=== PATIENT | male | born 1990 | race Caucasian/White ===

== ENCOUNTER 2022-06-23 07:28 | Emergency (ER) | payer SELFPAY ==
--- NOTE | ~2022-06-23 | CT_ITS ---
EXAMINATION: CT abdomen pelvis w con DATE: 06/23/2022 10:26 INDICATION: Lower abdominal pain. TECHNIQUE: Computed tomography (CT) of the abdomen and pelvis was performed with 100 mL Omnipaque-350 intravenous contrast. Automated exposure control and iterative reconstruction technique were employe d. The dose-length product was 1696.64 mGy-cm. COMPARISON: None FINDINGS: Lung bases are clear. Heart size is normal. No pericardial or pleural effusion. Liver, gallbladder, s pleen, pancreas, bilateral adrenal glands and kidneys are normal. Bowels including the appendix are n ormal. Bladder is normal. No free intraperitoneal gas or fluid. No pathologically enlarged abdominal or pelvic lymphadenopathy. Bones are unremarkable. IMPRESSION: 1. No acute intra-abdominal/pelvic process. Reviewed, dictated and finalized at location A. [employer]
[2022-06-23 07:31] VITALS: BP 153/82; PULSE 101; RESP 18; TEMP 36.4; O2SAT 100
[2022-06-23 08:30] LABS: Basophils Absolute Auto 0.1 K/mm3 (0.0-0.1); Basophils Percent Auto 1.2 % (0.2-1.2); Eosinophils Percent Auto 12.8 % (0-4.4); Hematocrit 44.3 % (42.0-52.0); Hemoglobin 14.5 g/dL (14.0-18.0); Immature Granulocyte Absolute 0.02 K/mm3 (0.00-0.031); Immature Granulocyte Percent A 0.2 % (0-0.5); Lymphocytes Absolute Auto 1.56 K/mm3 (0.9-3.2); Lymphocytes Percent Auto 19.2 % (18.3-44.2); Mean Corpuscular HGB Conc 32.7 g/dl (32-36); Mean Corpuscular Hemoglobin 28.5 pg (26-34); Mean Corpuscular Volume 87.2 fl (80-100); Mean Platelet Volume 10.2 fl (7.4-10.4); Monocytes Absolute Auto 0.6 K/mm3 (0.1-0.6); Monocytes Percent Auto 6.9 % (2.6-8.5); Neutrophils Absolute Auto 4.9 K/mm3 (1.3-6.7); Neutrophils Percent Auto 59.7 % (45.5-73.1); Platelet Count Result 201 k/mm3 (150-375); Red Blood Count 5.08 M/mm3 (4.6-6.20); Red Cell Distribution Width 13.3 % (11.5-14.5); White Blood Count 8.1 K/mm3 (4.5-10.0)
[2022-06-23 08:33] LABS: Appearance Urine Clear (Clear); Bilirubin Urine Negative (Negative); Blood Urine Negative (Negative); Color Urine Yellow (Yellow); Glucose Urine UA Negative (Negative); Ketones Urine Negative (Negative); Leukocyte Esterase Ur Negative LEU/UL (Negative); Nitrate Urine Negative (Negative); Protein Urine Negative (Negative); Urobilinogen Urine 0.2 mg/dL (<2.0)
[2022-06-23 08:41] LABS: Alanine Aminotransferase 41 U/L (6-50); Albumin Level 4.2 g/dL (3.5-5.1); Alkaline Phosphatase 56 U/L (38-126); Anion Gap 5 mmol/L (8-16); Aspartate Amino Transferase 26 U/L (17-59); Bilirubin,Total 0.4 mg/dL (0.2-1.3); Blood Urea Nitrogen 14 mg/dL (9-20); Calcium 8.5 mg/dL (8.4-10.2); Carbon Dioxide 24 mmol/L (22-30); Chloride 110 mmol/L (98-107); Estimated CRCL calculation 209 ml/min; Estimated Glomerular Filt Rate > 60; Glucose 102 mg/dL (65-110); Lipase 371 U/L (23-300); Potassium 4.5 mmol/L (3.4-5.0); Sodium 139 mmol/L (137-145)
[2022-06-23 08:51] LABS: Add Urine Microscopic? NO
--- NOTE | 2022-06-23 09:09 | ED.ABDPAIN ---
HPI - Abdominal Pain General Chief Complaint: Abdominal Pain Stated Complaint: abdominal pain with n/v/d x 1 month Time Seen by Provider: 06/23/22 07:33 Source: patient and RN notes reviewed Mode of arrival: ambulatory Limitations: no limitations History of Present Illness HPI narrative: This is a 31 year old male who presents for evaluation of abdominal pain, nausea, vomiting and diarrhea. Patient reports he has had constant daily lower abdominal pain for 1 month. His pain seems worse in the morning and when he feels like he needs to have a bowel movement. He states every morning he has diarrhea with episode of vomiting, and they rest of the day he has able to eat with diarrhea or vomiting. His pain worsened yesterday. He denies fever , chills. He states yesterday he found a lump on his rectum and he is having rectal pain Related Data Allergies Allergy/AdvReac Type Severity Reaction Status Date / Time No Known Allergies Allergy Unverified 06/23/22 07:28 Review of Systems Review of Systems: All systems reviewed & are unremarkable except as noted in HPI and below Constitutional: Constitutional: Denies chills, Denies fatigue and Denies fever(s) ENT: Denies nasal congestion and Denies sore throat Gastrointestinal: Gastrointestinal: Reports abdominal pain, Reports diarrhea, Reports nausea and Reports vomiting Genitourinary: Genitourinary: Denies hematuria PMFSH Past Medical History Medical History (Updated 06/23/22 @ 11:30 by Tiffanie Barnard MD) Patient denies medical problems Surgical History Surgical History (Updated 06/23/22 @ 10:13 by Tiffanie Barnard MD) No pertinent past surgical history Social History Social History (Updated 06/23/22 @ 10:13 by Tiffanie Barnard MD) Smoking status: Never smoker Exam Const: General: no acute distress and alert Nutritional Appearance: well nourished and obese Orientation/consciousness: patient oriented x3 Limitations: no limitations HENMT: Head: normal to inspection Eyes: EOM: EOMs intact bilaterally Chest: Chest palpation & inspection: normal inspection of the chest Resp: Effort & Inspection: normal respiratory effort Auscultation: clear to auscultation bilaterally Cardio: Rate: regular rate Rhythm: regular rhythm Heart sounds: no murmurs GI: GI Palp: Yes Soft to palpation, Yes Tenderness to palpation present (GI) (LLQ), No Guarding due to palpation present (GI), No Rigid due to palpation and No Hernia present Auscultation: Hypoactive bowel sounds present Rectal Exam: normal sphincter tone Other: no thrombosed hemorrhoid, no mass, , patient had pain with digital exam, no blood Skin: General skin exam: normal color Rashes: no rashes Neuro: General: patient oriented x3, moves all extremities and CN's II-XI intact bilaterally Cranial nerves: Yes Nystagmus not present Speech: normal speech Gait exam (Neuro): Normal gait present Extrem: General: normal to inspection Psych: Mental Status: mental status grossly normal Affect: normal affect Attitude: cooperative Course Reevaluation(s) Reevaluation #1: I have discussed with patient that labs are unremarkable for any significant abnormalities. CT was unremarkable. He does not have leukocytosis. I discussed he will be placed on medication for reflux and hemorrhoid cream. Date: 06/23/22 Time: 11:25 Vital Signs Vital signs: Vital Signs Temperature 97.6 F 06/23/22 07:31 Pulse Rate 101 H 06/23/22 07:31 Respiratory Rate 18 06/23/22 07:31 Blood Pressure 153/82 H 06/23/22 07:31 Pulse Oximetry 100 06/23/22 07:31 Oxygen Delivery Room Air 06/23/22 07:31 Temperature 97.6 F 06/23/22 07:31 Pulse Rate 73 06/23/22 11:39 Respiratory Rate 17 06/23/22 11:39 Blood Pressure 115/78 06/23/22 11:39 Pulse Oximetry 98 06/23/22 11:39 Oxygen Delivery Room Air 06/23/22 07:31 MDM - Abdominal Pain Differential Diagnosis Differential diagnosis: Likely abdominal pain,
[2022-06-23] MEDS: LACTATED RINGERS 1,000 ML 999 ML IV CONT (09:15)
[2022-06-23] MEDS: ONDANSETRON INJ 4 MG/2 ML VIAL IV PUSH (09:15)
[2022-06-23 11:28] VITALS: BP 120/73; PULSE 61; RESP 17; O2SAT 97
[2022-06-23 11:39] VITALS: BP 115/78; PULSE 73; RESP 17; O2SAT 98
== END 2022-06-23 11:39 | disposition home or self-care (01) ==
PROVIDERS: Emergency Provider General Practice
DX: R11.2 Nausea with vomiting, unspecified (principal); K62.89 Other specified diseases of anus and rectum
CPT/HCPCS: 36415; 74177; 80053; 81003; 83690; 85025; 96361; 96365; 96375; 99284; J0131; J2405; J7120; Q9967

== ENCOUNTER 2023-11-01 08:44 | Emergency (ER) | payer OTHER, SELFPAY ==
--- NOTE | ~2023-11-01 | XR_ITS ---
EXAMINATION: XR abdomen/kub 1V DATE: 11/01/2023 10:01 INDICATION: Low abdominal pain. TECHNIQUE: A supine view of the abdomen on 2 radiographs was obtained. COMPARISON: None. FINDINGS: There are no dilated loops of bowel. There is a small volume of stool in the colon. IMPRESSION: 1. Normal bowel gas pattern. Reviewed, dictated and finalized at location E.
[2023-11-01 08:47] VITALS: BP 164/81; PULSE 97; RESP 20; TEMP 36.9; O2SAT 100
--- NOTE | 2023-11-01 09:19 | ED.ABDPAIN ---
HPI - Abdominal Pain General Chief Complaint: Abdominal Pain Stated Complaint: abd pain Time Seen by Provider: 11/01/23 09:05 History of Present Illness HPI narrative: 33-year-old male no medical problems presents to the emergency room for evaluation of lower abdominal pain that began at 3:00 a.m. this morning. Describes the pain as a crampy sensation and was unrelieved with a small bowel movement he had a 4:00 a.m.. Patient states he was diagnosed with having AA external hemorrhoid couple of months ago at Urgent Care, but was not given any instructions as how to care for it. Patient does admit to infrequent small bowel movements. Denies any dysuria. Denies fevers. Related Data Allergies Allergy/AdvReac Type Severity Reaction Status Date / Time No Known Allergies Allergy Verified 11/01/23 08:49 Review of Systems Review of Systems: Review of systems unremarkable except as noted per HPI and below PMFSH Past Medical History Medical History Patient denies medical problems Surgical History Surgical History No pertinent past surgical history Social History Social History Smoking status: Never smoker Exam Narrative: GENERAL: Well-appearing, well-nourished, no physical limitations, and in no acute distress. Morbidly obese HEAD: Normocephalic, atraumatic. EYES: Conjunctivae normal, PERRLA and EOMI. CHEST: Clear to auscultation. No respiratory distress. No wheezes rales or rhonchi. HEART: Regular rate and rhythm. No murmur heard. Normal peripheral pulses. ABDOMEN: Soft, lower abdominal tenderness. Negative heel strike. Negative psoas and obturator signs. No rebound tenderness. Negative Clarke's BACK: No CVA tenderness; EXTREMITIES: Normal range of motion. No edema. No clubbing or cyanosis SKIN: Warm, dry, no rash. No noted wounds NEURO: No focal deficits. Alert and oriented x3. MAEW. CN's II-XI intact bilaterally, normal gait PSYCH: Cooperative. Normal mood and affect. Course Vital Signs Vital signs: Vital Signs Temperature 36.9 C 11/01/23 08:47 Pulse Rate 97 11/01/23 08:47 Respiratory Rate 20 11/01/23 08:47 Blood Pressure 164/81 H 11/01/23 08:47 Pulse Oximetry 100 11/01/23 08:47 Oxygen Delivery Room Air 11/01/23 08:47 Temperature 36.9 C 11/01/23 08:47 Pulse Rate 97 11/01/23 08:47 Respiratory Rate 20 11/01/23 08:47 Blood Pressure 164/81 H 11/01/23 08:47 Pulse Oximetry 100 11/01/23 08:47 Oxygen Delivery Room Air 11/01/23 08:47 MDM - Abdominal Pain MDM Narrative Medical decision making narrative: 33-year-old male no medical problems presented with lower abdominal pain. Patient endorsed hemorrhoids which were not being managed. States that he has been having small infrequent bowel movements. KUB and lab work were unremarkable. Patient likely experiencing constipation secondary to his hemorrhoids. Encourage patient to use magnesium citrate today, the tucks medicated pads, and consider daily fiber supplementation. Lab Data 11/01/23 09:26 11/01/23 09:26 Labs: Lab Results 11/01/23 Range/Units 09:26 WBC 7.3 (4.5-10.0) K/mm3 RBC 5.34 (4.6-6.20) M/mm3 Hgb 14.9 (14.0-18.0) g/dL Hct 45.3 (42.0-52.0) % MCV 84.8 (80-100) fl MCH 27.9 (26-34) pg MCHC 32.9 (32-36) g/dl RDW 13.4 (11.5-14.5) % Plt Count 199 (150-375) k/mm3 MPV 10.2 (7.4-10.4) fl Immature Gran % (Auto) 0.3 (0-0.5) % Neut % (Auto) 63.0 (45.5-73.1) % Lymph % (Auto) 21.0 (18.3-44.2) % Jewell % (Auto) 5.6 (2.6-8.5) % Eos % (Auto) 8.9 H (0-4.4) % Baso % (Auto) 1.2 (0.2-1.2) % Lymph # (Auto) 1.53 (0.9-3.2) K/mm3 Jewell # (Auto) 0.4 (0.1-0.6) K/mm3 Eos # (Auto) 0.7 H (0-0.3) K/mm3 Baso # (Auto) 0.1 (0.0-0.1) K/mm3 Abs Immat Gran (auto) 0
[2023-11-01 09:32] LABS: Basophils Absolute Auto 0.1 K/mm3 (0.0-0.1); Basophils Percent Auto 1.2 % (0.2-1.2); Eosinophils Absolute Auto 0.7 K/mm3 (0-0.3); Eosinophils Percent Auto 8.9 % (0-4.4); Hematocrit 45.3 % (42.0-52.0); Hemoglobin 14.9 g/dL (14.0-18.0); Immature Granulocyte Absolute 0.02 K/mm3 (0.00-0.031); Immature Granulocyte Percent A 0.3 % (0-0.5); Lymphocytes Absolute Auto 1.53 K/mm3 (0.9-3.2); Mean Corpuscular HGB Conc 32.9 g/dl (32-36); Mean Corpuscular Hemoglobin 27.9 pg (26-34); Mean Corpuscular Volume 84.8 fl (80-100); Mean Platelet Volume 10.2 fl (7.4-10.4); Monocytes Absolute Auto 0.4 K/mm3 (0.1-0.6); Monocytes Percent Auto 5.6 % (2.6-8.5); Neutrophils Absolute Auto 4.6 K/mm3 (1.3-6.7); Platelet Count Result 199 k/mm3 (150-375); Red Blood Count 5.34 M/mm3 (4.6-6.20); Red Cell Distribution Width 13.4 % (11.5-14.5); White Blood Count 7.3 K/mm3 (4.5-10.0)
[2023-11-01 09:34] LABS: Appearance Urine Clear (Clear); Bilirubin Urine Negative (Negative); Blood Urine Negative (Negative); Color Urine Yellow (Yellow); Glucose Urine UA Negative (Negative); Ketones Urine Negative (Negative); Leukocyte Esterase Ur Negative LEU/UL (Negative); Nitrate Urine Negative (Negative); Protein Urine Negative (Negative); Urobilinogen Urine 0.2 mg/dL (<2.0)
[2023-11-01 09:44] LABS: Alanine Aminotransferase 22 U/L (6-50); Albumin Level 4.8 g/dL (3.5-5.1); Alkaline Phosphatase 75 U/L (38-126); Anion Gap 10 mmol/L (4-12); Aspartate Amino Transferase 19 U/L (17-59); Bilirubin,Total 0.5 mg/dL (0.2-1.3); Blood Urea Nitrogen 13 mg/dL (9-20); Calcium 9.4 mg/dL (8.4-10.2); Carbon Dioxide 20 mmol/L (22-30); Chloride 109 mmol/L (98-107); Estimated CRCL calculation 181 ml/min; Estimated Glomerular Filt Rate > 60; Glucose 113 mg/dL (65-110); Sodium 139 mmol/L (137-145)
[2023-11-01 09:47] LABS: Add Urine Microscopic? NO
[2023-11-01 10:10] LABS: Lipase 59 U/L (23-300)
[2023-11-01] MEDS: SODIUM CHLORIDE 0.9% IV 1,000 ML 999 ML IV CONT (10:32)
[2023-11-01] MEDS: ONDANSETRON INJ 4 MG/2 ML VIAL IV PUSH (10:32)
[2023-11-01 11:16] VITALS: BP 126/80; PULSE 64; RESP 16; O2SAT 100
== END 2023-11-01 11:17 | disposition home or self-care (01) ==
PROVIDERS: Emergency Provider Nurse Practitioner Family
DX: K59.00 Constipation, unspecified (principal)
CPT/HCPCS: 36415; 74018; 80053; 81003; 83690; 85025; 96374; 99284; J2405; J7030